=== PATIENT | male | born 1995 | race Two or more races ===

== ENCOUNTER 2017-03-07 09:11 | Emergency (ER) | payer OTHER ==
[~2017-03-07] VITALS: Ht 188 cm; Wt 68.0 kg
[2017-03-07 10:48] VITALS: BP 137/73
== END 2017-03-07 12:34 | disposition home or self-care (01) ==
LOC: ER 09:11
DX: S61.235A Puncture wound without foreign body of left ring finger without damage to nail, initial encounter (principal); Y93.G9 Activity, other involving cooking and grilling; Y93.89 Activity, other specified; Y99.8 Other external cause status; Y92.69 Other specified industrial and construction area as the place of occurrence of the external cause
CPT/HCPCS: 73140; 99284; J7030